=== PATIENT | female | born 1990 | race Caucasian/White ===

== ENCOUNTER 2018-08-23 21:02 | Emergency (ER) | payer OTHER ==
[2018-08-23] MEDS ORDERED: Ketorolac Tromethamine 60 MG/2 ML VIAL ONE (22:40)
--- NOTE | 2018-08-23 23:15 | CT ---
CT OF THE THORACIC SPINE WITHOUT CONTRAST: History: Back pain. Patient was trying to place a Bryson catheter and when she sits down her feet go n umb. Chronic back pain. Patient does visit a chiropractor. Comparison: None. FINDINGS: Slightly heterogeneous thyroid gland. No mediastinal mass, lymphadenopathy or hematoma. Visualized re troperitoneal structures, solid organs and lung parenchyma are unremarkable. Central spinal canal and neural foramina are patent. Thoracic spine vertebral body height is maintained. No fracture. IMPRESSION: Unremarkable thoracic spine CT. Further evaluation with non-emergent MRI if clinically warranted. POS: [facility]
== END 2018-08-23 23:03 | disposition home or self-care (01) ==
LOC: ERS 21:02
DX: S29.012A Strain of muscle and tendon of back wall of thorax, initial encounter (principal); S39.012A Strain of muscle, fascia and tendon of lower back, initial encounter; X50.9XXA Other and unspecified overexertion or strenuous movements or postures, initial encounter; Y92.69 Other specified industrial and construction area as the place of occurrence of the external cause
CPT/HCPCS: 72128; 96372; J1885

== ENCOUNTER 2018-10-14 15:22 | Outpatient (CLI) | payer OTHER ==
--- NOTE | 2018-10-14 15:57 | ULT ---
THYROID ULTRASOUND INDICATION: Heterogeneous thyroid seen on a prior CT evaluation TECHNIQUE: Grayscale and color Doppler images were obtained of the thyroid gland. COMPARISON: None FINDINGS: Right thyroid lobe: The right thyroid lobe measures 5.0 x 1.4 x 1.8 cm. Thyroid isthmus: The thyroid isthmus measures 0.54 cm. Left thyroid lobe: The left thyroid lobe measures 5.1 x 1.4 x 1.7 cm. There is a 5 x 4 x 4.5 mm solid hypoechoic nodule with associated macrocalcifications. This lesion is well circumscribed and appears wider than tall. IMPRESSION: 1. TIRADS 4 lesion of the left thyroid lobe. This lesion is below 1 cm in size; therefore, no sonogra phic follow up is recommended.
== END 2018-10-14 15:23 | disposition home or self-care (01) ==
LOC: BICULT 15:22
PROVIDERS: ATTEND Physician Assistant
DX: R94.6 Abnormal results of thyroid function studies (principal); E07.89 Other specified disorders of thyroid
CPT/HCPCS: 76536

== ENCOUNTER 2018-11-08 10:55 | Outpatient (CLI) | payer OTHER ==
--- NOTE | 2018-11-08 13:50 | MRI ---
MRI thoracic spine noncontrast: DATE: 11/08/2018 HISTORY: 27-year-old female with stranding of thoracic spine region. Work injury. FINDINGS: Vertebral body heights are maintained. Alignment is normal. Thoracic spinal cord is normal in size an d signal. There is no focal disc herniation, nerve root impingement, cord impingement, central spinal canal stenosis, or neural foraminal stenosis, at any level. Bone marrow signal is normal. Keyla vertebral spaces are unremarkable. Conus medullaris terminates at an appropriate level. Disc signal is normal. IMPRESSION: Normal
== END 2018-11-08 10:56 | disposition home or self-care (01) ==
LOC: SCSMRI 10:55
PROVIDERS: ATTEND Family Medicine
DX: S29.012A Strain of muscle and tendon of back wall of thorax, initial encounter (principal)
CPT/HCPCS: 72146

== ENCOUNTER 2019-02-10 13:42 | Emergency (ER) | payer OTHER ==
[2019-02-10 14:20] LABS: Bilirubin Negative (Negative); Blood, Urine Negative (Negative); Clarity Clear (Clear); Glucose, Urine (Dipstick) Normal (Negative); Leukocyte Negative Leu/uL (Negative); Nitrite Negative (Negative); Protein, Urine (Dipstick) Negative (Neg-Trace); Urobilinogen Normal mg/dL (Less than 2)
--- NOTE | 2019-02-10 14:49 | ULT ---
Exam: Transabdominal and endovaginal pelvic ultrasound HISTORY:Evaluate for IUP. Sudden onset of suprapubic cramping. COMPARISON: None TECHNIQUE: Transabdominal and endovaginal imaging of the pelvis is performed. Ovaries are interrogate d with grayscale, color flow, Doppler imaging and spectral wave form analysis FINDINGS: Uterus: No myometrial masses. Uterus measurin.5 x 5.6 x 6.5 cm. Endometrium: Within the endometrium, there is a gestational sac, yolk sac. pole is not apprecia sherwin. Mean sac diameter is 0.91 cm corresponding to gestational age of 5 weeks 5 days. Free fluid: None Left ovary: Normal echotexture. Left ovary measurements: 1.8 x 1.1 x 2.2 cm Right ovary: Ill-defined hypoechoic focus in the right ovary measures 2.0 x 1.1 x 1.6 cm. Right ovary measurement: Overall the right ovary measures 1.7 x 2.4 x 2.4 cm Ovarian Doppler: There is vascular flow to the left and right ovary. IMPRESSION: 1. There is evidence of a gestational sac and yolk sac within the endometrium. Gestational age by estrellita n sac diameter is 5 weeks 5 days. Findings likely represent early intrauterine gestation 2. Recommendation: Follow-up ultrasound and serial beta hCG
[2019-02-10 14:57] LABS: #Eosinphils 0.1 thou/uL (0.0-0.7); #Monocytes 0.4 thou/uL (0.11-0.59); #Neutrophils 4.8 thou/uL (1.40-6.50); %Basophils 0.4 % (0.0-1.0); %Neutrophils 65.6 % (42.0-75.0); Hemoglobin 12.3 g/dL (12.0-16.0); Mean Corpuscular HGB CONC 33.3 g/dL (32.0-36.0); Mean Corpuscular Hemoglobin 27.9 pg (27.0-31.0); Mean Corpuscular Volume 83.9 fL (78.0-98.0); Mean Platelet Volume 6.5 fL (7.4-10.4); Platelet Count 319 thou/uL (130-400); RBC Distribution Width 12.3 % (11.5-14.5); Red Blood Cell (RBC) Count 4.41 mill/uL (4.20-5.40); White Blood Cell (WBC) Count 7.3 thou/uL (4.8-10.8)
[2019-02-10 15:23] LABS: ALT (SGPT) 36 U/L (8-55); AST (SGOT) 22 U/L (5-34); Albumin 4.2 g/dL (3.5-5.0); Alkaline Phosphatase 66 U/L (40-150); Anion Gap 10 mmol/L (10-20); BUN (Urea Nitrogen) 10 mg/dL (7.0-18.7); Bilirubin, Total 0.4 mg/dL (0.2-1.2); Calc. Creatinine Clearance 0 mL/min (70-130); Calcium 9.5 mg/dL (7.8-10.44); Carbon Dioxide 27 mmol/L (22-29); Chloride 103 mmol/L (98-107); Estimated GFR-MDRD Greater than 90; Globulin 2.9 g/dL (2.4-3.5); Glucose 94 mg/dL (70-105); Potassium 3.9 mmol/L (3.5-5.1); Protein, Total 7.1 g/dL (6.0-8.3); Sodium 136 mmol/L (136-145)
== END 2019-02-10 15:59 | disposition home or self-care (01) ==
LOC: ERS 13:42
DX: O99.89 Other specified diseases and conditions complicating pregnancy, childbirth and the puerperium (principal); R10.2 Pelvic and perineal pain; R10.30 Lower abdominal pain, unspecified; Z3A.08 8 weeks gestation of pregnancy
CPT/HCPCS: 36415; 76856; 80053; 81003; 84702; 85025

== ENCOUNTER 2019-08-08 14:57 | Emergency (ER) | payer OTHER ==
[2019-08-08 15:19] LABS: #Basophils 0.1 thou/uL (0.0-0.2); #Lymphocytes 2.3 thou/uL (1.20-3.40); #Monocytes 0.5 thou/uL (0.11-0.59); #Neutrophils 9.5 thou/uL (1.40-6.50); %Basophils 0.4 % (0.0-1.0); %Eosinophils 0.2 % (0.0-10.0); %Lymphocytes 18.6 % (21.0-51.0); %Monocytes 4.3 % (0.0-10.0); %Neutrophils 76.5 % (42.0-75.0); Hemoglobin 11.6 g/dL (12.0-16.0); Mean Corpuscular HGB CONC 35.4 g/dL (32.0-36.0); Mean Corpuscular Hemoglobin 30.2 pg (27.0-31.0); Mean Corpuscular Volume 85.1 fL (78.0-98.0); Mean Platelet Volume 6.3 fL (7.4-10.4); Platelet Count 253 thou/uL (130-400); RBC Distribution Width 12.8 % (11.5-14.5); Red Blood Cell (RBC) Count 3.85 mill/uL (4.20-5.40); White Blood Cell (WBC) Count 12.4 thou/uL (4.8-10.8)
--- NOTE | 2019-08-08 15:40 | RAD ---
PORTABLE CHEST: Date: 08/08/2019 HISTORY: Chest pain. FINDINGS: Heart size and mediastinum are within normal limits. Lungs are clear of any infiltrative process. No significant bony findings. IMPRESSION: No active intrathoracic disease. POS: [facility]
[2019-08-08 15:43] LABS: ALT (SGPT) 7 U/L (8-55); AST (SGOT) 8 U/L (5-34); Albumin 3.6 g/dL (3.5-5.0); Alkaline Phosphatase 101 U/L (40-110); Anion Gap 13 mmol/L (10-20); BUN (Urea Nitrogen) 7 mg/dL (7.0-18.7); Bilirubin, Total 0.2 mg/dL (0.2-1.2); CK (CPK) 26 U/L (29-168); Calc. Creatinine Clearance 0 mL/min (70-130); Calcium 8.7 mg/dL (7.8-10.44); Carbon Dioxide 21 mmol/L (22-29); Chloride 106 mmol/L (98-107); Estimated GFR-MDRD Greater than 90; Globulin 2.8 g/dL (2.4-3.5); Glucose 130 mg/dL (70-105); Lipase 18 U/L (8-78); Potassium 3.8 mmol/L (3.5-5.1); Protein, Total 6.4 g/dL (6.0-8.3); Sodium 136 mmol/L (136-145)
[2019-08-08 16:06] LABS: Bacteria/HPF 2+ HPF (None Seen); Bilirubin Negative (Negative); Blood, Urine Negative (Negative); Clarity Clear (Clear); Glucose, Urine (Dipstick) 50 mg/dL (Negative); Leukocyte Negative Leu/uL (Negative); Nitrite Negative (Negative); Protein, Urine (Dipstick) Negative (Neg-Trace); RBC/HPF 0-3 HPF (0-3); Squamous Epithelial 0-3 HPF (0-3); Urobilinogen Normal mg/dL (Less than 2); WBC/HPF 0-3 HPF (0-3)
== END 2019-08-08 16:29 | disposition home or self-care (01) ==
LOC: ERS 14:57
DX: O99.89 Other specified diseases and conditions complicating pregnancy, childbirth and the puerperium (principal); R07.9 Chest pain, unspecified; O24.419 Gestational diabetes mellitus in pregnancy, unspecified control; Z3A.31 31 weeks gestation of pregnancy
CPT/HCPCS: 36415; 71045; 80053; 81001; 82550; 83690; 84484; 85025; 93005

== ENCOUNTER 2019-09-28 05:23 | Inpatient (IN) | payer OTHER ==
[2019-09-28] MEDS ORDERED: Lactated Ringer's 1,000 ML IV SCH (05:55)
[2019-09-28] MEDS ORDERED: Ondansetron PF 4 MG/2 ML Vial IVP PRN ×3 (05:55→09:32)
[2019-09-28] MEDS ORDERED: Promethazine HCl 25 MG/ML VIAL IM PRN ×2 (05:55→08:35)
[2019-09-28] MEDS ORDERED: hydrALAZINE 20 MG/ML VIAL SLOW IVP PRN ×2 (05:55→09:32)
[2019-09-28] MEDS ORDERED: Azithromycin 500 MG in Sodium Chloride 0.9% 250 ML 250 ML IVPB SCH (06:00)
[2019-09-28] MEDS ORDERED: CEFAZOLIN 2 GM in Premix Bag 1 BAG IVPB SCH (06:00)
[2019-09-28 06:16] VITALS: BMI 42.1
[2019-09-28 06:18] LABS: Hemoglobin 11.7 g/dL (12.0-16.0); Mean Corpuscular HGB CONC 33.5 g/dL (32.0-36.0); Mean Corpuscular Hemoglobin 28.7 pg (27.0-31.0); Mean Corpuscular Volume 85.7 fL (78.0-98.0); Mean Platelet Volume 7.5 fL (7.4-10.4); Platelet Count 279 thou/uL (130-400); RBC Distribution Width 13.5 % (11.5-14.5); Red Blood Cell (RBC) Count 4.07 mill/uL (4.20-5.40); White Blood Cell (WBC) Count 13.7 thou/uL (4.8-10.8)
[2019-09-28 06:50] LABS: HBSAg Index 0.23 S/CO (0-0.99); Hep B Surf Ag Non-Reactive S/CO (NonReactive); Syphilis Antibody Nonreactive (Nonreactive); Syphilis Antibody Index 0.04 S/CO (<1.00 Non-Reactive)
[2019-09-28] MEDS ORDERED: Oxytocin 10 UNITS/ML VIAL ONE (07:13)
[2019-09-28] MEDS ORDERED: Dexamethasone 4 mg/ml Vial ONE (07:13)
[2019-09-28] MEDS ORDERED: Fentanyl 100 MCG/2 ML VIAL ONE (07:13)
[2019-09-28] MEDS ORDERED: PHENYLEPHRINE-NS 100 MCG/ML 10 ML SYRINGE ONE (07:13)
[2019-09-28] MEDS ORDERED: Ondansetron PF 4 MG/2 ML Vial ONE (07:13)
[2019-09-28] MEDS ORDERED: MORPHINE 5 MG/10 ML PF VIAL ONE (07:13)
[2019-09-28] MEDS ORDERED: Ketorolac Tromethamine 30 MG/ML VIAL ONE (07:13)
[2019-09-28] MEDS ORDERED: Naloxone HCl 0.4 mg/ml Vial IV PRN (08:35)
[2019-09-28] MEDS ORDERED: L&D-Morphine 4 MG/ML VIAL SLOW IVP PRN (08:35)
[2019-09-28] MEDS ORDERED: Naloxone HCl 0.4 mg/ml Vial IVP PRN ×2 (08:35)
[2019-09-28] MEDS ORDERED: Promethazine HCl 25 MG SUPP PR PRN (08:35)
[2019-09-28] MEDS ORDERED: Meperidine HCl/PF 25 MG/ML VIAL SLOW IVP PRN (08:35)
[2019-09-28] MEDS ORDERED: Ondansetron HCl/PF 4 MG/2 ML Vial IVP PRN (08:35)
[2019-09-28] MEDS ORDERED: Ketorolac Tromethamine 30 MG/ML VIAL IVP PRN (08:35)
[2019-09-28] MEDS ORDERED: diphenhydrAMINE 50 MG/ML VIAL IVP PRN (08:35)
[2019-09-28] MEDS ORDERED: HYDROmorphone 2 MG/ML VIAL SLOW IVP PRN (08:35)
[2019-09-28] MEDS ORDERED: diphenhydrAMINE 50 MG/ML VIAL ONE (08:41)
[2019-09-28] MEDS ORDERED: Communication Order-Pharmacy FS SCH (08:45)
[2019-09-28] MEDS ORDERED: Ketorolac Tromethamine 30 MG/ML VIAL IVP SCH (08:45)
--- NOTE | 2019-09-28 08:59 | OP ---
DATE OF PROCEDURE: 09/28/2019 PREOPERATIVE DIAGNOSES: 1. Term intrauterine with previous section x3. 2. Gestational diabetes. 3. Maternal tachycardia during . POSTOPERATIVE DIAGNOSES: 1. Term intrauterine with previous section x3. 2. Gestational diabetes. 3. Maternal tachycardia during . 4. Status post delivery. PROCEDURES PERFORMED: Repeat low-transverse section. BOND ANALYST: Randal Cisneros MD [employer]ORATORY ASSISTANT FOR TECHNICAL DIFFICULTIES: Dr. Arrington. ANESTHESIA: Spinal anesthetic. COMPLICATIONS: No complications. DESCRIPTION OF PROCEDURE: After adequate spinal anesthetic, the patient was placed in the supine position, which was placed under her right flank. A Bryson catheter was placed in her bladder and the abdomen was prepped and draped in the usual sterile technique. A Pfannenstiel incision was made in the inferior aspect of the abdomen. Subcutaneous tissue was opened with sharp dissection. Fascia was opened with sharp dissection. Peritoneum was opened with sharp and blunt dissection. Noted that the abdomen was still with a gravid uterus. There were no intraabdominal adhesions noted. An Zay O retractor was placed without difficulty and a low-transverse incision was made on the uterus. Membranes were ruptured. Clear fluid was encountered and a viable male was delivered from vertex presentation without difficulty. breathed and cried spontaneously. After approximately 30 seconds, cord was clamped and cut and the was handed to the care of the Neonatology Team. Cord blood was obtained and the placenta was delivered manually, appeared intact. There was minimal bleeding. Ring forceps were placed over the hysterotomy edges and the hysterotomy was then closed in continuous fashion using 0 Monocryl suture. Hemostasis was adequate. There was no further bleeding from the incision site, the peritoneal edges, or the fascial edges. Gutters were checked, there were no clots. The peritoneum was then closed in continuous fashion using 2-0 chromic and the fascia was then closed in continuous fashion using 0 Vicryl. Sponge and instrument counts were correct. The wound was irrigated. A few bleeders were cauterized, and the subcutaneous tissue was closed using 2-0 plain. The skin was then closed using pan and a wound VAC was applied. The patient tolerated the procedure well to go to recovery room in good condition. Noted the baby is a viable male , 7 at 1 minute and 9 at 5 minutes to the level I nursery in good condition. Quantitative blood loss is pending at this time. ESTIMATED BLOOD LOSS: Approximately 800 mL. Job ID: [id number]
[2019-09-28] MEDS ORDERED: Bisacodyl 10 MG SUPP PR PRN (09:32)
[2019-09-28] MEDS ORDERED: Simethicone Chewable 80 MG TAB PO PRN (09:32)
[2019-09-28] MEDS ORDERED: Acetaminophen 325 MG TAB PO PRN (09:32)
[2019-09-28] MEDS ORDERED: Lanolin Ointment 7 GM TUBE TOP PRN (09:32)
[2019-09-28] MEDS ORDERED: Docusate Calcium (SURFAK) 240 MG CAP PO SCH (09:45)
[2019-09-28] MEDS ORDERED: Meperidine HCl/PF 25 MG/ML VIAL ONE (11:07)
[2019-09-28] MEDS: HYDROcodone/Acetaminophen 5/325 mg Tablet PO PRN ×3 (12:31→21:38)
[2019-09-28] MEDS: diphenhydrAMINE 25 MG CAP PO PRN ×3 (12:31→21:38)
[2019-09-28] MEDS: Docusate Calcium (SURFAK) 240 MG CAP PO SCH (21:39)
[2019-09-28] MEDS: Ibuprofen 800 MG TAB PO SCH (21:39)
[2019-09-29] MEDS: diphenhydrAMINE 25 MG CAP PO PRN ×3 (01:41→09:53)
[2019-09-29] MEDS: HYDROcodone/Acetaminophen 5/325 mg Tablet PO PRN ×6 (01:41→23:32)
[2019-09-29] MEDS: Ibuprofen 800 MG TAB PO SCH ×3 (05:51→21:15)
[2019-09-29 06:43] LABS: Hemoglobin 9.3 g/dL (12.0-16.0); Mean Corpuscular HGB CONC 33.5 g/dL (32.0-36.0); Mean Corpuscular Hemoglobin 28.8 pg (27.0-31.0); Mean Corpuscular Volume 86.1 fL (78.0-98.0); Mean Platelet Volume 6.8 fL (7.4-10.4); Platelet Count 198 thou/uL (130-400); RBC Distribution Width 13.2 % (11.5-14.5); Red Blood Cell (RBC) Count 3.24 mill/uL (4.20-5.40)
[2019-09-29] MEDS: Docusate Calcium (SURFAK) 240 MG CAP PO SCH ×2 (09:53→21:15)
[2019-09-29] MEDS ORDERED: Ibuprofen 800 MG TAB PO SCH (14:00)
--- NOTE | 2019-09-29 15:22 | PDOC.PP ---
Post Progress Note Post Day #: 1 Subjective: Doing well. Pain controlled. Has showered and passed gas. well. Pumping and supplementing as well. PO intake tolerated: yes Flatus: yes Ambulation: yes Vital Signs (12 hours) Temp Pulse Resp BP Pulse Ox 09/29/19 11:36 97.9 F 72 20 102/62 09/29/19 08:05 97.7 F 76 20 100/55 L 99 09/29/19 04:30 98.3 F 72 16 95/52 L 99 Weight Weight 277 lb - Physical Examination General: NAD Cardiovascular: no m/r/g, RRR Respiratory: clear to auscultation bilaterally, non-labored breathing Abdominal: + bowel sounds, lochia, no distention, appropriately TTP Skin: CS incision dry & intact, no rash Neurological: no gross focal deficits Psychiatric: A&Ox3 Result Diagrams: 09/29/19 06:33 Additional Labs: Post Labs Blood Type A POSITIVE 09/28/19 06:04 Hep Bs Antigen Non-Reactive S/CO (NonReactive) 09/28/19 06:04 (1) Status post repeat low transverse section Code(s): Z98.891 - HISTORY OF UTERINE SCAR FROM PREVIOUS SURGERY Status: Acute - Assessment/Plan POD #1 Doing well Routine shelter likely tomorrow
[2019-09-30] MEDS: HYDROcodone/Acetaminophen 5/325 mg Tablet PO PRN ×3 (03:48→12:26)
[2019-09-30] MEDS: Ibuprofen 800 MG TAB PO SCH (05:43)
[2019-09-30 07:52] VITALS: BP 129/60; TEMP 98.4
[2019-09-30] MEDS: Docusate Calcium (SURFAK) 240 MG CAP PO SCH (08:18)
--- NOTE | 2019-09-30 13:15 | PDOC.PP ---
Post Progress Note Post Day #: 2 Subjective: Doing well, no complaints, pain controlled. PO intake tolerated: yes Flatus: yes Ambulation: yes Vital Signs (12 hours) Temp Pulse Resp BP Pulse Ox 09/30/19 07:51 98.4 F 82 20 129/60 100 09/30/19 04:24 98.8 F 91 18 135/76 98 Weight Weight 277 lb - Physical Examination General: NAD Cardiovascular: no m/r/g, RRR Respiratory: clear to auscultation bilaterally, non-labored breathing Abdominal: + bowel sounds, lochia, no distention, appropriately TTP Skin: CS incision dry & intact (Vac in place) Neurological: no gross focal deficits Psychiatric: A&Ox3 Result Diagrams: 09/29/19 06:33 Additional Labs: Post Labs Blood Type A POSITIVE 09/28/19 06:04 Hep Bs Antigen Non-Reactive S/CO (NonReactive) 09/28/19 06:04 (1) Status post repeat low transverse section Code(s): Z98.891 - HISTORY OF UTERINE SCAR FROM PREVIOUS SURGERY Status: Acute - Assessment/Plan Routine Post-oip intermediate with wound vac F/U next week I will send pain meds from my office - Ibuprofen and norco.
== END 2019-09-30 14:18 | disposition home or self-care (01) | DRG 788 ==
LOC: L&D 05:23 → 3SW 13:28 → 3SE 18:59
PROVIDERS: ADMIT Family Medicine; ATTEND Family Medicine
PROC: 10D00Z1 Extraction of Products of Conception, Low, Open Approach (ICD-10-PCS; principal; 2019-09-28)
DX: O24.420 Gestational diabetes mellitus in childbirth, diet controlled (principal); Z3A.38 38 weeks gestation of pregnancy; Z37.0 Single live birth; R00.0 Tachycardia, unspecified; O75.89 Other specified complications of labor and delivery
CPT/HCPCS: 36415; 36416; 51702; 85027; 86780; 86850; 86900; 86901; 87340; J0456; J0690; J1100; J1200; J1885; J2175; J2274; J2405; J2590; J3010; J7050; Q0163

== ENCOUNTER 2020-05-22 08:08 | Emergency (ER) | payer OTHER ==
[2020-05-22] MEDS ORDERED: Ondansetron PF 4 MG/2 ML Vial ONE (08:40)
[2020-05-22] MEDS ORDERED: Morphine 4 MG/ML VIAL ONE ×2 (08:40→10:02)
[2020-05-22 08:51] LABS: Bacteria/HPF 2+ HPF (None Seen); Bilirubin Negative (Negative); Blood, Urine Negative (Negative); Clarity Clear (Clear); Glucose, Urine (Dipstick) Normal (Negative); Ketone, Urine Trace mg/dL (Negative); Leukocyte Negative Leu/uL (Negative); Nitrite Negative (Negative); Protein, Urine (Dipstick) 30 mg/dL (Neg-Trace); RBC/HPF 0-3 HPF (0-3); Specific Gravity, Urine 1.041 (1.002-1.036); Squamous Epithelial 0-3 HPF (0-3); WBC/HPF 0-3 HPF (0-3)
[2020-05-22 08:59] LABS: Pregnancy Test - Urine (BHCG) Negative (Negative); Pregu Control Background? CLEAR/WHITE (CLR/WHITE); Pregu Control Bar Appear? YES (CONTROL BAR); Specific Gravity 1.041 (1.002-1.036)
[2020-05-22 09:18] LABS: #Lymphocytes 1.8 thou/uL (1.20-3.40); #Monocytes 0.5 thou/uL (0.11-0.59); #Neutrophils 3.6 thou/uL (1.40-6.50); %Basophils 0.3 % (0.0-1.0); %Eosinophils 0.1 % (0.0-10.0); %Lymphocytes 30.9 % (21.0-51.0); %Neutrophils 60.7 % (42.0-75.0); Hemoglobin 11.6 g/dL (12.0-16.0); Mean Corpuscular HGB CONC 32.3 g/dL (32.0-36.0); Mean Corpuscular Hemoglobin 25.6 pg (27.0-31.0); Mean Corpuscular Volume 79.2 fL (78.0-98.0); Mean Platelet Volume 6.6 fL (7.4-10.4); Platelet Count 268 thou/uL (130-400); RBC Distribution Width 13.1 % (11.5-14.5); Red Blood Cell (RBC) Count 4.55 mill/uL (4.20-5.40); White Blood Cell (WBC) Count 5.9 thou/uL (4.8-10.8)
[2020-05-22 09:24] LABS: ALT (SGPT) 50 U/L (8-55); AST (SGOT) 28 U/L (5-34); Albumin 3.5 g/dL (3.5-5.0); Alkaline Phosphatase 89 U/L (40-110); Anion Gap 13 mmol/L (10-20); BUN (Urea Nitrogen) 14 mg/dL (7.0-18.7); Bilirubin, Total 0.4 mg/dL (0.2-1.2); Calc. Creatinine Clearance 0 mL/min (70-130); Calcium 8.9 mg/dL (7.8-10.44); Carbon Dioxide 24 mmol/L (22-29); Chloride 105 mmol/L (98-107); Estimated GFR-MDRD Greater than 90; Globulin 2.7 g/dL (2.4-3.5); Glucose 106 mg/dL (70-105); Lipase 18 U/L (8-78); Potassium 4.1 mmol/L (3.5-5.1); Protein, Total 6.2 g/dL (6.0-8.3); Sodium 138 mmol/L (136-145)
--- NOTE | 2020-05-22 09:45 | CT ---
CT ABDOMEN AND PELVIS WITH IV CONTRAST 05/22/2020 CLINICAL INFORMATION: Suprapubic abdominal pain for one week. Pain worse today. COMPARISON: 04/17/2008 Technique: Multiple contiguous axial CT images are obtained through the abdomen and pelvis with IV contrast. Cor onal reformatted images are provided. FINDINGS: Lower Chest: Lung bases are clear. Vessels: Abdominal aorta is normal in caliber. Abdomen: Portal vein:Patent Gallbladder: Within normal limits for CT imaging. Liver: within normal limits. Spleen: within normal limits. Pancreas: within normal limits. Adrenals: within normal limits. Kidneys: within normal limits. Bowel: Normal caliber. Appendix: Mildly prominent in size measuring approximately 8 mm in diameter. However, the appendix is similar in appearance when compared to study in 2007 with measurement of approximately 7 mm. No cecal apical thickening or periappendiceal inflammatory changes are seen. Peritoneum: No ascites or free air; no fluid collection. Mesentery and Retroperitoneum: No enlarged mesenteric or retroperitoneal lymph nodes. Abdominal Wall: within normal limits. Pelvis: Reproductive Organs: No pelvic masses. Bladder: within normal limits. Bones: No suspicious lytic or sclerotic osseous lesions. IMPRESSION: 1. The appendix is mildly prominent in size but had a similar appearance when compared to the study i n 2007. There are no secondary signs seen to suggest acute appendicitis based on this exam. However, if there is strong clinical concern for appendicitis, follow-up imaging in 24 hours can be p erformed for further evaluation. 2. No acute findings in the abdomen or pelvis. 3. Above findings discussed with Dr. Lucero in the emergency department on 05/22/2020 at 0941 hours.
[2020-05-22] MEDS ORDERED: Iopamidol-370 76% 500 ML 1 ML ONE (10:18)
--- NOTE | 2020-05-22 11:29 | CON ---
DATE OF CONSULTATION: 05/22/2020 REQUESTING PHYSICIAN: Dr. Martin Lucero. HISTORY OF PRESENT ILLNESS: This is a 29-year-old woman, who is a G5, P4, 8 months . The patient presented to the Emergency Department today with approximately 1-week history of severe sharp lower abdominal pain. Pain is not exacerbated by eating or activity. Pain has not been relieved with oral analgesics. The patient denies any fevers or chills. She admits to intermittent nausea, but no emesis. She denies any change in her bowel habits. She usually has about one bowel movement daily and has had one today. Last meal was yesterday; however. The patient denies any unexplained weight loss. At maximum intensity, pain was rated at 9/10. At the time of my evaluation, her pain is now 4/10, she had received some intravenous analgesics. PAST MEDICAL HISTORY: Pertinent for gestational diabetes mellitus, for which she currently takes no medications. She also has history of hypertension. She has not been taking any antihypertensives since the - pandemic. PAST SURGICAL HISTORY: Pertinent for x4 through a low Pfannenstiel incision. SOCIAL HISTORY: She is , lives at home with and children. She is employed as a nurse here at [employer]. She denies any cigarette smoking, ethanol, or illicit drug abuse. FAMILY HISTORY: Notable for her father, who recently from complications of stage 4 colon cancer. She denies any family history of diabetes mellitus, heart disease, or any inflammatory bowel disease. PREHOSPITALIZATION MEDICATIONS: Includes; 1. Metformin 500 mg p.o. b.i.d. 2. Labetalol 100 mg p.o. b.i.d., which the patient is currently not taking. ALLERGIES: TO TRAMADOL. REVIEW OF SYSTEMS: Ten-point review of systems essentially unremarkable except as stated in past medical history and chief complaint. PHYSICAL EXAMINATION: GENERAL: This reveals a 29-year-old normally developed woman, who is otherwise coherent and interactive and appears stated age. The patient is alert and oriented x3. She appears to be in no acute distress at the time of my evaluation. VITAL SIGNS: Includes blood pressure is 160/86, pulse is 75, respiratory rate is 20, temperature is 98 degrees Fahrenheit, and oxygen saturation 99% on room air. HEENT: Reveals normocephalic and atraumatic. Pupils are equal, round, and reactive to light and accommodation. NECK: She has no jugular venous distention noted. HEART: Reveals regular rate and rhythm. No murmurs or gallops auscultated. LUNGS: Clear to auscultation bilaterally. Her breathing is regular and unlabored. ABDOMEN: Soft and obese. She has a vague suprapubic abdominal tenderness to palpation with no gross rebound tenderness present. She clearly has no right lower quadrant tenderness to palpation. Rovsing's sign is negative. Liver and spleen otherwise nonpalpable below costal margin. She has a healed low Pfannenstiel incision and the abdominal pain seems to localize at the low Pfannenstiel incision right at the suprapubic region. NEUROLOGIC: Reveals no focal deficits present. LABORATORY FINDINGS: Today includes a CBC with 5900 white blood cells and hemoglobin and hematocrit 11.6 and 36.0 respectively. Platelet count is 268,000. Metabolic profile; sodium 138, potassium 4.1, chloride is 105, bicarb is 24, BUN 14, creatinine is 0.56, glucose is 106, total bilirubin 0.4, and AST and ALT normal at 28 and 50 respectively. C-reactive protein is 1.29. Serum lipase is normal at 18. I have personally reviewed the CT scan of the abdomen and pelvis, which is notable for slightly dilated appendix at 8 mm in diameter with no periappendiceal fat stranding, free fluid, or pneumoperitoneum present. Note that, the appendix measured at 7 mm in diameter in 2008. IMPRESSION: Lower abdominal pain, likely secondary to adhesions from prior abdominal operations. There is no clinical or radiographic evidence of acute appendicitis, for this patient at this time. Therefore, no surgical indication is warranted. RECOMMENDATIONS: 1. Oral analgesics as well as duloxetine for visceral pain. 2. Clearly, no surgical indication at this time. Above findings and recommendation was discussed with the patient in the presence of her nurse at bedside. The patient indicated understanding of information provided. I have answered her questions. The patient may be discharged home from the Emergency Department. Thank you again, Dr. Lucero, for allowing me the opportunity to participate in the care of this patient. Job ID: [id number]
== END 2020-05-22 10:47 | disposition home or self-care (01) ==
LOC: ERS 08:08
DX: R10.31 Right lower quadrant pain (principal); R10.32 Left lower quadrant pain
CPT/HCPCS: 74177; 80053; 81003; 81015; 81025; 83605; 83690; 85025; 86140; 96374; 96375; 96376; J2270; J2405; Q9967

== ENCOUNTER 2020-10-18 15:30 | Outpatient (CLI) | payer OTHER | END 2020-10-18 15:31 | disposition home or self-care (01) | LOC: BICMRI 15:30 | PROVIDERS: ATTEND Family Medicine | DX: S89.91XD Unspecified injury of right lower leg, subsequent encounter (principal) ==

== ENCOUNTER 2022-01-15 14:14 | Observation (INO) | payer BC, OTHER ==
[~2022-01-15 14:14] MED LIST: Iopamidol-370 76% 500 ML 1 ML ONE
[2022-01-15] MEDS ORDERED: Ondansetron PF 4 MG/2 ML Vial ONE (14:51)
[2022-01-15] MEDS ORDERED: Lorazepam 1 MG TAB ONE (14:51)
[2022-01-15 14:53] LABS: #Lymphocytes 2.4 thou/uL (1.20-3.40); #Monocytes 0.4 thou/uL (0.11-0.59); #Neutrophils 7.7 thou/uL (1.40-6.50); %Basophils 0.1 % (0.0-1.0); %Lymphocytes 22.9 % (21.0-51.0); %Monocytes 3.4 % (0.0-10.0); %Neutrophils 73.6 % (42.0-75.0); Mean Corpuscular HGB CONC 33.5 g/dL (32.0-36.0); Mean Corpuscular Hemoglobin 27.7 pg (27.0-31.0); Mean Corpuscular Volume 82.7 fL (78.0-98.0); Mean Platelet Volume 6.4 fL (7.4-10.4); Platelet Count 364 thou/uL (130-400); White Blood Cell (WBC) Count 10.4 thou/uL (4.8-10.8)
[2022-01-15 15:03] LABS: BHCG - Serum Negative (NEGATIVE); Pregs Control Background? CLEAR/WHITE (CLR/WHITE); Pregs Control Bar Appear? YES (CONTROL BAR)
[2022-01-15 15:16] LABS: ALT (SGPT) 24 U/L (8-55); AST (SGOT) 16 U/L (5-34); Albumin 4.1 g/dL (3.5-5.0); Alkaline Phosphatase 85 U/L (40-110); Anion Gap 13 mmol/L (10-20); BUN (Urea Nitrogen) 8 mg/dL (7.0-18.7); Bilirubin, Total 0.5 mg/dL (0.2-1.2); Calc. Creatinine Clearance 0 mL/min (70-130); Calcium 9.4 mg/dL (7.8-10.44); Carbon Dioxide 26 mmol/L (22-29); Chloride 103 mmol/L (98-107); Estimated GFR 119; Globulin 3.1 g/dL (2.4-3.5); Glucose 157 mg/dL (70-105); Potassium 3.6 mmol/L (3.5-5.1); Protein, Total 7.2 g/dL (6.0-8.3); Sodium 138 mmol/L (136-145)
[2022-01-15 15:26] LABS: Free Thyroxine Index 3.98 (1.4-3.1); Thyroid Stimulating Hormone 0.0031 uIU/mL (0.35-4.94)
[2022-01-15] MEDS ORDERED: diphenhydrAMINE 50 MG/ML VIAL ONE (17:03)
[2022-01-15] MEDS ORDERED: Metoclopramide 10 MG/10 ML UDCUP ONE (17:03)
[2022-01-15] MEDS ORDERED: Ketorolac Tromethamine 30 MG/ML VIAL ONE (17:03)
[2022-01-15] MEDS ORDERED: Metoclopramide HCl 10 MG/2 ML VIAL ONE (17:04)
[2022-01-15] MEDS ORDERED: Labetalol HCl 100 MG/20 ML VIAL SLOW IVP PRN (17:53)
[2022-01-15] MEDS ORDERED: Acetaminophen 500 MG TAB PO PRN (17:53)
[2022-01-15] MEDS ORDERED: Ondansetron PF 4 MG/2 ML Vial IVP PRN (17:53)
[2022-01-15] MEDS ORDERED: Ondansetron ODT 4 MG TAB PO PRN (17:53)
[2022-01-15] MEDS ORDERED: Lorazepam 0.5 MG TAB PO PRN (18:05)
[2022-01-15 18:19] LABS: Troponin I Less than 0.010 ng/mL (< 0.028)
[2022-01-15 18:46] VITALS: BMI 38.7
[2022-01-15] MEDS: Sodium Chloride 0.9% 1,000 ML IV SCH (20:14)
[2022-01-15] MEDS: Methimazole 10 MG TAB PO SCH (20:15)
[2022-01-15] MEDS: Famotidine 20 MG TAB PO SCH (20:15)
[2022-01-15] MEDS: Propranolol HCl 20 MG TAB PO SCH (20:15)
[2022-01-15 21:00] LABS: Troponin I Less than 0.010 ng/mL (< 0.028)
[2022-01-16] MEDS: Propranolol HCl 20 MG TAB PO SCH ×3 (00:36→12:38)
[2022-01-16 05:38] LABS: #Lymphocytes 2.5 thou/uL (1.20-3.40); #Monocytes 0.5 thou/uL (0.11-0.59); #Neutrophils 3.8 thou/uL (1.40-6.50); %Eosinophils 0.1 % (0.0-10.0); %Lymphocytes 37.3 % (21.0-51.0); %Monocytes 6.8 % (0.0-10.0); %Neutrophils 55.8 % (42.0-75.0); Hemoglobin 11.3 g/dL (12.0-16.0); Mean Corpuscular HGB CONC 31.8 g/dL (32.0-36.0); Mean Corpuscular Hemoglobin 27.1 pg (27.0-31.0); Mean Corpuscular Volume 85.5 fL (78.0-98.0); Mean Platelet Volume 6.6 fL (7.4-10.4); Platelet Count 296 thou/uL (130-400); Red Blood Cell (RBC) Count 4.17 mill/uL (4.20-5.40); White Blood Cell (WBC) Count 6.8 thou/uL (4.8-10.8)
[2022-01-16 05:46] LABS: Anion Gap 9 mmol/L (10-20); BUN (Urea Nitrogen) 10 mg/dL (7.0-18.7); Calc. Creatinine Clearance 231 mL/min (70-130); Calcium 8.4 mg/dL (7.8-10.44); Carbon Dioxide 27 mmol/L (22-29); Chloride 108 mmol/L (98-107); Estimated GFR 121; Glucose 96 mg/dL (70-105); Potassium 4.2 mmol/L (3.5-5.1); Sodium 140 mmol/L (136-145)
[2022-01-16] MEDS: Methimazole 10 MG TAB PO SCH (09:07)
[2022-01-16] MEDS: Famotidine 20 MG TAB PO SCH (09:07)
[2022-01-16] MEDS: Sodium Chloride 0.9% 1,000 ML IV SCH (09:18)
[2022-01-16 11:36] VITALS: BP 121/80; TEMP 97.4
== END 2022-01-16 13:19 | disposition home or self-care (01) ==
LOC: EEVIPCON 14:14 → ERS 14:14 → NEURO 17:04
PROVIDERS: ADMIT Internal Medicine; ATTEND Internal Medicine
DX: E05.90 Thyrotoxicosis, unspecified without thyrotoxic crisis or storm (principal); I10 Essential (primary) hypertension; Z88.5 Allergy status to narcotic agent; Z20.822 Contact with and (suspected) exposure to COVID-19
CPT/HCPCS: 36415; 71045; 71275; 80048; 80053; 84436; 84443; 84479; 84484; 84703; 85025; 85379; 93005; 96361; 96365; 96375; G0378; J1200; J1885; J2405; J2765; J7050; Q0162; Q9967; U0003; U0005

== ENCOUNTER 2022-10-20 17:00 | Inpatient (IN) | payer BC ==
[2022-10-21 15:07] VITALS: BMI 39.5
[2022-10-29] MEDS ORDERED: fentaNYL PF 100 MCG/2 ML SYRINGE ONE ×2 (06:11→09:43)
[2022-10-29] MEDS ORDERED: HYDROmorphone 2 MG/ML VIAL ONE (06:11)
[2022-10-29] MEDS ORDERED: Dexmedetomidine 200 MCG/2 ML VIAL ONE (06:11)
[2022-10-29] MEDS ORDERED: Bupivacaine/Epinephrine 0.25% 30 ML VIAL ONE (06:37)
[2022-10-29] MEDS ORDERED: Heparin 5,000 UNITS/ML VIAL ONE (06:45)
[2022-10-29] MEDS ORDERED: Midazolam HCl 2 mg/2 ml Vial ONE (07:15)
[2022-10-29] MEDS ORDERED: Sodium Chloride 0.9% 100 ML ONE (07:26)
[2022-10-29] MEDS ORDERED: CEFAZOLIN 2 GM VIAL ONE (07:26)
[2022-10-29] MEDS ORDERED: Rocuronium Bromide 10 MG/ML (10ML VIAL) ONE (07:54)
[2022-10-29] MEDS ORDERED: Metoclopramide HCl 10 MG/2 ML VIAL ONE (07:54)
[2022-10-29] MEDS ORDERED: Ondansetron PF 4 MG/2 ML Vial ONE (07:54)
[2022-10-29] MEDS ORDERED: Ketorolac Tromethamine 30 MG/ML VIAL ONE (07:54)
[2022-10-29] MEDS ORDERED: PROPOFOL 200 MG/20 ML VIAL ONE (07:54)
[2022-10-29] MEDS ORDERED: Lidocaine 1% PF 5 ML VIAL ONE (07:54)
[2022-10-29] MEDS ORDERED: Dexamethasone 20 MG/5 ML VIAL ONE (07:54)
[2022-10-29] MEDS ORDERED: SUGAMMADEX SODIUM 200 MG/2 ML VIAL ONE (08:56)
[2022-10-29] MEDS ORDERED: Dextrose 5% in Water 1,000 ML IV PRN (09:10)
[2022-10-29] MEDS ORDERED: diphenhydrAMINE 50 MG/ML VIAL IVP PRN (09:10)
[2022-10-29] MEDS ORDERED: Dextrose 50% Abboject 50 ML SYRINGE SLOW IVP PRN (09:10)
[2022-10-29] MEDS ORDERED: Morphine 2 MG/ML VIAL SLOW IVP PRN (09:10)
[2022-10-29] MEDS ORDERED: Promethazine HCl 25 MG/ML VIAL IM PRN (09:10)
[2022-10-29] MEDS ORDERED: Ipratropium/Albuterol 3 ML NEB NEB PRN (09:10)
[2022-10-29] MEDS ORDERED: hydrALAZINE 20 MG/ML VIAL SLOW IVP PRN (09:10)
[2022-10-29] MEDS ORDERED: Morphine 4 MG/ML VIAL SLOW IVP PRN (09:10)
[2022-10-29] MEDS ORDERED: GLYCOPYRROLATE/PF 0.2 MG/ML VIAL ONE (09:21)
[2022-10-29] MEDS ORDERED: Promethazine HCl 25 MG/ML VIAL ONE (09:43)
[2022-10-29] MEDS ORDERED: hydrALAZINE 20 MG/ML VIAL ONE (10:17)
[2022-10-29] MEDS ORDERED: Metoprolol Tartrate 5 MG/5 ML VIAL ONE (10:51)
[2022-10-29] MEDS: D5 1/2 NS w/20 mEq KCL 1,000 ML IV SCH ×3 (13:15→21:28)
[2022-10-29] MEDS: Ketorolac Tromethamine 30 MG/ML VIAL IVP SCH ×2 (13:15→18:31)
[2022-10-29] MEDS: Ondansetron PF 4 MG/2 ML Vial IVP PRN (17:09)
[2022-10-29] MEDS: CEFAZOLIN 2 GM in Sodium Chloride 0.9% 100 ML IVPB SCH (17:10)
[2022-10-29] MEDS: Hydrocodone-Acetamin 15 ML UDCUP PO PRN (20:38)
[2022-10-30] MEDS: Ketorolac Tromethamine 30 MG/ML VIAL IVP SCH ×2 (00:09→05:02)
[2022-10-30] MEDS: CEFAZOLIN 2 GM in Sodium Chloride 0.9% 100 ML IVPB SCH (00:10)
[2022-10-30] MEDS: Ondansetron PF 4 MG/2 ML Vial IVP PRN (00:10)
[2022-10-30 04:23] VITALS: BP 135/83; TEMP 97.9
[2022-10-30] MEDS: Hydrocodone-Acetamin 15 ML UDCUP PO PRN (04:31)
[2022-10-30 05:23] LABS: #Monocytes 0.5 thou/uL (0.11-0.59); #Neutrophils 10.8 thou/uL (1.40-6.50); %Basophils 0.1 % (0.0-1.0); %Lymphocytes 16.5 % (21.0-51.0); %Monocytes 3.8 % (0.0-10.0); %Neutrophils 79.2 % (42.0-75.0); Hemoglobin 11.7 g/dL (12.0-16.0); Mean Corpuscular HGB CONC 31.9 g/dL (32.0-36.0); Mean Corpuscular Hemoglobin 27.1 pg (27.0-31.0); Mean Platelet Volume 9.1 fL (7.4-10.4); Platelet Count 329 10x3/uL (130-400); RBC Distribution Width 13.4 % (11.5-14.5); Red Blood Cell (RBC) Count 4.32 mill/uL (4.20-5.40); White Blood Cell (WBC) Count 13.6 10x3/uL (4.8-10.8)
[2022-10-30 05:46] LABS: Anion Gap 10 mmol/L (10-20); BUN (Urea Nitrogen) 8 mg/dL (7.0-18.7); Calc. Creatinine Clearance 204 mL/min (70-130); Calcium 8.8 mg/dL (7.8-10.44); Carbon Dioxide 25 mmol/L (22-29); Chloride 105 mmol/L (98-107); Estimated GFR 110; Glucose 150 mg/dL (70-105); Potassium 4.1 mmol/L (3.5-5.1); Sodium 136 mmol/L (136-145)
[2022-10-30] MEDS ORDERED: Pantoprazole 40 MG VIAL IVP SCH (09:00)
[2022-10-30] MEDS: D5 1/2 NS w/20 mEq KCL 1,000 ML IV SCH (09:10)
== END 2022-10-30 09:13 | disposition home or self-care (01) | DRG 621 ==
LOC: SURG A 10-29 05:55
PROVIDERS: ADMIT Surgery; ATTEND Surgery
PROC: 0DB64Z3 Excision of Stomach, Percutaneous Endoscopic Approach, Vertical (ICD-10-PCS; principal; 2022-10-29)
DX: E66.01 Morbid (severe) obesity due to excess calories (principal); Z68.39 Body mass index [BMI] 39.0-39.9, adult; Z88.5 Allergy status to narcotic agent
CPT/HCPCS: 36415; 80048; 85025; 88307; C1889; J0360; J1100; J1170; J1644; J1885; J2250; J2270; J2405; J2550; J2704; J2765; J3480; J3490

== ENCOUNTER 2022-10-21 14:32 | Outpatient (CLI) | payer BC ==
[2022-10-21 15:20] LABS: Hemoglobin 12.6 g/dL (12.0-15.5); Mean Corpuscular HGB CONC 32.9 g/dL (32.0-36.0); Mean Corpuscular Hemoglobin 27.4 pg (27.0-33.0); Mean Corpuscular Volume 83.3 fl (81.6-98.3); Mean Platelet Volume 8.7 fl (7.4-10.4); Platelet Count 376 10x3/uL (150-450); RBC Distribution Width 13.3 % (11.5-14.5); White Blood Cell (WBC) Count 9.2 10x3/uL (3.5-10.5)
[2022-10-21 15:42] LABS: BHCG - Serum Negative (NEGATIVE); Pregs Control Background? CLEAR/WHITE (CLR/WHITE); Pregs Control Bar Appear? YES (CONTROL BAR)
[2022-10-21 15:58] LABS: MDiff Complete? YES; Manual Diff?? YES
[2022-10-21 16:04] LABS: Band 3 % (5-11); Lymphocytes 44 % (21-51); Monocytes 3 % (0-10); Neutrophil 50 % (42-75); Platelet Morphology Comment Appears Adequate
[2022-10-21 16:05] LABS: RBC Morphology Normal
[2022-10-21 16:24] LABS: ALT (SGPT) 48 U/L (8-55); AST (SGOT) 27 U/L (5-34); Albumin 4.6 g/dL (3.5-5.0); Alkaline Phosphatase 88 U/L (40-110); Anion Gap 18 mmol/L (10-20); BUN (Urea Nitrogen) 13 mg/dL (7.0-18.7); Bilirubin, Total 0.3 mg/dL (0.2-1.2); Calc. Creatinine Clearance 0 mL/min (70-130); Calcium 9.3 mg/dL (7.8-10.44); Carbon Dioxide 22 mmol/L (22-29); Chloride 106 mmol/L (98-107); Estimated GFR 110; Globulin 2.9 g/dL (2.4-3.5); Glucose 100 mg/dL (70-105); Potassium 4.5 mmol/L (3.5-5.1); Protein, Total 7.5 g/dL (6.0-8.3); Sodium 141 mmol/L (136-145)
[2022-10-21 20:25] LABS: Hemoglobin A1c 5.3 % (4.0-6.0)
== END 2022-10-21 14:33 | disposition home or self-care (01) ==
LOC: LABBT 14:32
PROVIDERS: ATTEND Surgery
DX: Z01.818 Encounter for other preprocedural examination (principal); E66.01 Morbid (severe) obesity due to excess calories
CPT/HCPCS: 71046; 80053; 83036; 84703; 85025; 93005; 93010

== ENCOUNTER 2023-03-24 21:37 | Emergency (ER) | payer BC ==
[2023-03-24] MEDS ORDERED: Morphine 4 MG/ML VIAL ONE ×2 (22:10→23:41)
[2023-03-24] MEDS ORDERED: Dicyclomine 20 MG/2 ML VIAL ONE (22:10)
[2023-03-24] MEDS ORDERED: Ondansetron PF 4 MG/2 ML Vial ONE (22:10)
[2023-03-24] MEDS ORDERED: Dicyclomine 20 MG TAB ONE (22:12)
[2023-03-24 22:13] LABS: Bacteria/HPF None Seen HPF (None Seen); Bilirubin Negative (Negative); Blood, Urine 2+ (Negative); Clarity Clear (Clear); Glucose, Urine (Dipstick) Normal (Negative); Ketone, Urine Negative (Negative); Leukocyte 25 Leu/uL (Negative); Nitrite Negative (Negative); Protein, Urine (Dipstick) Negative (Neg-Trace); RBC/HPF 0-3 HPF (0-3); Specific Gravity, Urine 1.025 (1.002-1.036); Urobilinogen Normal mg/dL (Less than 2)
[2023-03-24 22:16] LABS: Urine Culture Reflex No No
[2023-03-24 22:28] LABS: BHCG - Serum Negative (NEGATIVE); Pregs Control Background? CLEAR/WHITE (CLR/WHITE); Pregs Control Bar Appear? YES (CONTROL BAR)
[2023-03-24 22:43] LABS: #Monocytes 0.3 thou/uL (0.11-0.59); #Neutrophils 3.3 thou/uL (1.40-6.50); %Lymphocytes 42.1 % (21.0-51.0); %Monocytes 5.4 % (0.0-10.0); %Neutrophils 52.3 % (42.0-75.0); Hematocrit 35.6 % (36.0-47.0); Hemoglobin 11.7 g/dL (12.0-16.0); Mean Corpuscular HGB CONC 32.9 g/dL (32.0-36.0); Mean Corpuscular Volume 88.1 fl (78.0-98.0); Mean Platelet Volume 9.5 fL (7.4-10.4); Platelet Count 308 10x3/uL (130-400); RBC Distribution Width 13.8 % (11.5-14.5); Red Blood Cell (RBC) Count 4.04 mill/uL (4.20-5.40); White Blood Cell (WBC) Count 6.2 10x3/uL (4.8-10.8)
[2023-03-24 22:59] LABS: ALT (SGPT) 16 U/L (8-55); AST (SGOT) 17 U/L (5-34); Albumin 4.2 g/dL (3.5-5.0); Alkaline Phosphatase 58 U/L (40-110); Anion Gap 14 mmol/L (10-20); BUN (Urea Nitrogen) 11 mg/dL (7.0-18.7); Bilirubin, Total 0.3 mg/dL (0.2-1.2); Calc. Creatinine Clearance 0 mL/min (70-130); Calcium 8.8 mg/dL (7.8-10.44); Carbon Dioxide 24 mmol/L (22-29); Chloride 106 mmol/L (98-107); Estimated GFR 115; Globulin 2.3 g/dL (2.4-3.5); Glucose 94 mg/dL (70-105); Lipase 41 U/L (8-78); Protein, Total 6.5 g/dL (6.0-8.3); Sodium 140 mmol/L (136-145)
[2023-03-24] MEDS ORDERED: Lidocaine 2% Viscous Solution 10 ML, Aluminum & Magnesium Hydroxide 30 ML SSW SCH (23:00)
[2023-03-25 00:51] LABS: Troponin I Less than 0.010 ng/mL (< 0.028)
[2023-03-25] MEDS ORDERED: HYDROmorphone 0.5 MG/0.5 ML SYRINGE ONE (01:23)
[2023-03-25] MEDS ORDERED: Iopamidol-370 76% 500 ML MDV (1 ML CHARGE) ONE (15:47)
== END 2023-03-25 03:20 | disposition home or self-care (01) ==
LOC: ERS 21:37
DX: K83.9 Disease of biliary tract, unspecified (principal); E03.9 Hypothyroidism, unspecified
CPT/HCPCS: 36415; 74177; 76705; 80053; 81001; 83690; 84484; 84703; 85025; 86140; 93005; 96374; 96375; 96376; J1170; J2270; J2405; Q9967

== ENCOUNTER 2024-03-30 07:26 | Outpatient (CLI) | payer BC | END 2024-03-30 07:27 | disposition home or self-care (01) | LOC: NM 07:26 | PROVIDERS: ATTEND Internal Medicine Endocrinology, Diabetes & Metabolism | DX: E05.80 Other thyrotoxicosis without thyrotoxic crisis or storm (principal) | CPT/HCPCS: 78014; A9516 ==

== ENCOUNTER 2024-04-06 12:03 | Outpatient (CLI) | payer BC ==
[2024-04-06 12:43] LABS: BHCG - Serum Negative (NEGATIVE); Pregs Control Background? CLEAR/WHITE (CLR/WHITE); Pregs Control Bar Appear? YES (CONTROL BAR)
== END 2024-04-06 12:04 | disposition home or self-care (01) ==
LOC: NM 12:03
PROVIDERS: ATTEND Internal Medicine Endocrinology, Diabetes & Metabolism
DX: E05.80 Other thyrotoxicosis without thyrotoxic crisis or storm (principal)
CPT/HCPCS: 36415; 79005; 84703; A9517

== ENCOUNTER 2024-06-06 12:18 | Observation (INO) | payer BC ==
[2024-06-06] MEDS ORDERED: Meclizine HCl 25 MG TAB ONE (12:40)
[2024-06-06 13:01] LABS: #Basophils Less than 0.03 10x3/uL (0.0-0.2); #Eosinophils Less than 0.03 10x3/uL (0.0-0.7); %Monocytes 7.3 % (0.0-10.0); %Neutrophils 57.4 % (42.0-75.0); Hematocrit 35.9 % (36.0-47.0); Hemoglobin 11.9 g/dL (12.0-16.0); Mean Corpuscular HGB CONC 33.1 g/dL (32.0-36.0); Mean Corpuscular Hemoglobin 26.3 pg (27.0-31.0); Mean Corpuscular Volume 79.2 fL (78.0-98.0); Mean Platelet Volume 8.8 fL (7.4-10.4); Platelet Count 301 10x3/uL (130-400); RBC Distribution Width 14.1 % (11.5-14.5); Red Blood Cell (RBC) Count 4.53 mill/uL (4.20-5.40)
[2024-06-06] MEDS ORDERED: Iopamidol-370 76% 500 ML MDV (1 ML CHARGE) ONE (13:02)
[2024-06-06 13:15] LABS: PTT 30.5 sec (22.9-36.1); Prothrombin Time 12.7 sec (12.0-14.7)
[2024-06-06 13:24] LABS: ALT (SGPT) 19 U/L (8-55); AST (SGOT) 19 U/L (5-34); Albumin 3.9 g/dL (3.5-5.0); Alkaline Phosphatase 80 U/L (40-110); Anion Gap 14 mmol/L (10-20); BUN (Urea Nitrogen) 13 mg/dL (7.0-18.7); Bilirubin, Total 0.3 mg/dL (0.2-1.2); Calc. Creatinine Clearance 0 mL/min (70-130); Calcium 9.6 mg/dL (7.8-10.44); Carbon Dioxide 21 mmol/L (22-29); Chloride 107 mmol/L (98-107); Estimated GFR 119; Globulin 3.3 g/dL (2.4-3.5); Glucose 95 mg/dL (70-105); Magnesium 2.1 mg/dL (1.6-2.6); Potassium 3.9 mmol/L (3.5-5.1); Protein, Total 7.2 g/dL (6.0-8.3); Sodium 138 mmol/L (136-145)
[2024-06-06 13:24] LABS: Bacteria/HPF None Seen HPF (None Seen); Bilirubin Negative (Negative); Blood, Urine Negative (Negative); CAUTI Indications for Culture Dysuria,urgency,freq; Clarity Clear (Clear); Glucose, Urine (Dipstick) Normal (Negative); Ketone, Urine Negative (Negative); Leukocyte Negative Leu/uL (Negative); Nitrite Negative (Negative); Protein, Urine (Dipstick) Negative (Neg-Trace); RBC/HPF 0-3 HPF (0-3); Specific Gravity, Urine 1.005 (1.002-1.036); Squamous Epithelial None Seen HPF (0-3); Urobilinogen Normal mg/dL (Less than 2); WBC/HPF None Seen HPF (0-3)
[2024-06-06 13:25] LABS: BHCG - Serum Negative (NEGATIVE); Pregs Control Background? CLEAR/WHITE (CLR/WHITE); Pregs Control Bar Appear? YES (CONTROL BAR)
[2024-06-06 13:31] LABS: Troponin I Less than 0.010 ng/mL (< 0.028)
[2024-06-06 13:40] LABS: Urine Culture Reflex No No
[2024-06-06 13:50] LABS: Free T4 (Free Thyroxine) 2.05 ng/dL (0.70-1.48); Thyroid Stimulating Hormone Less than 0.0083 uIU/mL (0.35-4.94)
[2024-06-06] MEDS ORDERED: Senokot S 8.6-50 MG TAB PO PRN (16:15)
[2024-06-06] MEDS ORDERED: Calcium Carbonate 500 MG ChewTAB PO PRN (16:15)
[2024-06-06] MEDS ORDERED: Acetaminophen 325 MG TAB PO PRN (16:15)
[2024-06-06] MEDS ORDERED: Ondansetron PF 4 MG/2 ML Vial IVP PRN (16:15)
[2024-06-06] MEDS ORDERED: Lorazepam 2 MG/ML VIAL SLOW IVP SCH (16:30)
[2024-06-06] MEDS ORDERED: Sodium Chloride 0.9% 500 ML IV SCH (16:30)
[2024-06-06] MEDS ORDERED: Methimazole 10 MG TAB PO SCH (17:00)
[2024-06-06 20:57] VITALS: BMI 29.6
[2024-06-06] MEDS ORDERED: Lorazepam 0.5 MG TAB PO PRN (21:00)
[2024-06-07 05:02] LABS: #Basophils Less than 0.03 10x3/uL (0.0-0.2); #Eosinophils Less than 0.03 10x3/uL (0.0-0.7); %Lymphocytes 47.3 % (21.0-51.0); %Monocytes 11.5 % (0.0-10.0); %Neutrophils 41.2 % (42.0-75.0); Hematocrit 32.1 % (36.0-47.0); Hemoglobin 10.4 g/dL (12.0-16.0); Mean Corpuscular HGB CONC 32.4 g/dL (32.0-36.0); Mean Corpuscular Hemoglobin 26.2 pg (27.0-31.0); Mean Corpuscular Volume 80.9 fL (78.0-98.0); Mean Platelet Volume 8.8 fL (7.4-10.4); Platelet Count 235 10x3/uL (130-400); RBC Distribution Width 14.1 % (11.5-14.5); Red Blood Cell (RBC) Count 3.97 mill/uL (4.20-5.40)
[2024-06-07 05:12] LABS: ALT (SGPT) 14 U/L (8-55); AST (SGOT) 14 U/L (5-34); Albumin 3.3 g/dL (3.5-5.0); Alkaline Phosphatase 70 U/L (40-110); Anion Gap 11 mmol/L (10-20); BUN (Urea Nitrogen) 14 mg/dL (7.0-18.7); Bilirubin, Total 0.4 mg/dL (0.2-1.2); Calc. Creatinine Clearance 191 mL/min (70-130); Calcium 8.3 mg/dL (7.8-10.44); Carbon Dioxide 23 mmol/L (22-29); Chloride 109 mmol/L (98-107); Estimated GFR 123; Globulin 2.6 g/dL (2.4-3.5); Glucose 88 mg/dL (70-105); Magnesium 2.1 mg/dL (1.6-2.6); Protein, Total 5.9 g/dL (6.0-8.3); Sodium 139 mmol/L (136-145)
[2024-06-07] MEDS: Propranolol HCl 20 MG TAB PO SCH (05:50)
[2024-06-07] MEDS ORDERED: Methimazole 10 MG TAB PO SCH (09:00)
[2024-06-07] MEDS ORDERED: Lorazepam 0.5 MG TAB PO PRN (10:13)
[2024-06-07 16:15] VITALS: BP 126/68; TEMP 98.3
== END 2024-06-07 17:34 | disposition home or self-care (01) ==
LOC: ERS 12:18 → SUATTDRO 12:18 → OBS 16:16
PROVIDERS: ADMIT Internal Medicine; ATTEND Hospitalist
PROC: B24BZZZ Ultrasonography of Heart with Aorta (ICD-10-PCS; principal; 2024-06-07)
DX: E05.90 Thyrotoxicosis, unspecified without thyrotoxic crisis or storm (principal); F41.9 Anxiety disorder, unspecified; Z88.8 Allergy status to other drugs, medicaments and biological substances; Z79.899 Other long term (current) drug therapy
CPT/HCPCS: 36415; 71045; 71275; 80053; 81001; 83735; 83880; 84439; 84443; 84481; 84484; 84703; 85025; 85610; 85730; 93005; 93306; 96360; G0378; Q9967